=== PATIENT | male | born 1935 | race Caucasian/White ===

== ENCOUNTER 2016-12-07 10:49 | Emergency (ER) | payer MEDICARE, OTHER ==
[2016-12-07] MEDS ORDERED: GLUCAGON 1 MG VIAL ONE (11:23)
== END 2016-12-07 13:53 | disposition other institution (70) ==
LOC: ER 10:49
DX: T18.128A Food in esophagus causing other injury, initial encounter (principal)
CPT/HCPCS: 36415; 80053; 85025; 96374; 99283; J1610

== ENCOUNTER 2016-12-13 14:45 | Emergency (ER) | payer MEDICARE, OTHER ==
[2016-12-13] MEDS ORDERED: ALU/MAG/SIM 30 ML UDC ONE (19:03)
[2016-12-13] MEDS ORDERED: LIDOCAINE 2% VISC 15 ML UDC ONE (19:03)
== END 2016-12-13 19:23 | disposition home or self-care (01) ==
LOC: ER 14:45
DX: R07.2 Precordial pain (principal); R07.89 Other chest pain
CPT/HCPCS: 36415; 71010; 74220; 80053; 82553; 84484; 85025; 93005

== ENCOUNTER 2016-12-14 17:32 | Emergency (ER) | payer MEDICARE, OTHER ==
[2016-12-14] MEDS ORDERED: OPTIRAY 350 100 ML VIAL HMH IV ONE (17:33)
[2016-12-14] MEDS ORDERED: SODIUM CHLORIDE 0.9% 500 ML IV ONE (20:26)
[2016-12-14] MEDS ORDERED: SODIUM CHLORIDE 0.9% 100 ML IV ONE (21:48)
[2016-12-14] MEDS ORDERED: CEFTRIAXONE 1 GM VIAL ONE (21:48)
== END 2016-12-14 22:14 | disposition home or self-care (01) ==
LOC: ER 17:32
DX: R50.9 Fever, unspecified (principal); N39.0 Urinary tract infection, site not specified; R31.9 Hematuria, unspecified
CPT/HCPCS: 36415; 71010; 71260; 80053; 81001; 83605; 85025; 87040; 87077; 87088; 87186; 87804; 93005; 96361; 96365; 99285; J0696; J7040; Q9967

== ENCOUNTER 2016-12-15 10:50 | Emergency (ER) | payer MEDICARE, OTHER ==
[2016-12-15] MEDS ORDERED: SODIUM CHLORIDE 0.9% 100 ML IV ONE (11:45)
[2016-12-15] MEDS ORDERED: CEFTRIAXONE 1 GM VIAL ONE (11:45)
== END 2016-12-15 13:53 | disposition home or self-care (01) ==
LOC: ER 10:50
DX: R50.9 Fever, unspecified (principal); D72.829 Elevated white blood cell count, unspecified; N30.90 Cystitis, unspecified without hematuria; R78.81 Bacteremia
CPT/HCPCS: 36415; 80053; 81001; 83605; 85025; 87040; 96365; 99284; J0696; J7050